=== PATIENT | male | born 1965 | race American Indian/Alaskan Native ===

== ENCOUNTER 2017-05-07 19:44 | Observation (INO) | payer BC ==
[2017-05-07 20:00] VITALS: BMI 33.2
[2017-05-07 20:20] LABS: ALB/GLOB RATIO 1.3 (1.1-1.8); ALBUMIN 4.3 g/dL (3.0-4.8); ALT/SGPT 22 U/L (7-56); AST/SGOT 21 U/L (15-59); BLOOD UREA NITROGEN 15 mg/dL (7-21); CALCIUM 9.5 mg/dL (8.4-10.5); GFR AFRICAN-AMERICAN > 60; GFR NON-AFRICAN AMERICAN > 60; HDL CHOLESTEROL 57 mg/dL (29-60)
[2017-05-07 20:31] LABS: LDL CHOLESTEROL 59 mg/dL (0-129); TROPONIN I < 0.01 ng/mL
--- NOTE | 2017-05-07 20:37 | ED PDOC ---
Arrival/HPI - General Chief Complaint: Weakness/Neurological Deficit Time Seen by Provider: 05/07/17 19:46 Historian: Patient, Family - History of Present Illness Narrative History of Present Illness (Text): 05/07/17 19:45 Lane Rivera is a 51 year old male who presents to the ED complaining of sudden onset of left sided weakness prior to arrival. Patient reports associated slurred speech. Patient denies any shortness of breath, chest pain, abdominal pain, nausea, vomiting, diarrhea, or any other complaints. Time/Duration: Prior to Arrival Symptom Onset: Gradual Symptom Course: Unchanged Activities at Onset: Rest, Light Context: Home Past Medical History - Provider Review Nursing Documentation Reviewed: Yes - Psychiatric Hx Substance Use: No - Anesthesia Hx Anesthesia: No Family/Social History - Physician Review Nursing Documentation Reviewed: Yes Family/Social History: Unknown Family HX Smoking Status: Never Smoked Hx Alcohol Use: No Hx Substance Use: No Allergies/Home Meds Allergies/Adverse Reactions: Allergies No Known Allergies Allergy (Verified 05/07/17 19:47) Home Medications: Home Meds Medication Instructions Recorded Confirmed No Known Home Med 05/07/17 05/07/17 Review of Systems - Physician Review All systems were reviewed & negative as marked: Yes - Review of Systems Constitutional: Normal Eyes: Normal ENT: Normal Respiratory: Normal. absent: SOB, Cough Cardiovascular: Normal. absent: Chest Pain Gastrointestinal: Normal. absent: Abdominal Pain, Diarrhea, Nausea, Vomiting Genitourinary Male: Normal Musculoskeletal: Normal Skin: Normal Neurological: Focal Weakness (+left-sided weakness), Speech Changes (+slurred speech) Endocrine: Normal Hemo/Lymphatic: Normal Psychiatric: Normal Physical Exam Vital Signs Reviewed: Yes Vital Signs Temp Pulse Resp BP Pulse Ox 05/07/17 22:28 98.3 F 78 17 132/61 05/07/17 21:19 78 17 132/61 97 05/07/17 21:03 79 18 137/82 99 05/07/17 20:55 72 17 144/60 99 05/07/17 20:09 98.3 F 83 18 132/64 99 05/07/17 20:07 86 19 132/64 98 Temperature: Afebrile Blood Pressure: Normal Pulse: Regular Respiratory Rate: Normal Appearance: Positive for: Well-Appearing, Non-Toxic, Comfortable Pain Distress: None Mental Status: Positive for: Alert and Oriented X 3 Finger Stick Blood Glucose: 103 - Systems Exam Head: Present: Atraumatic, Normocephalic Pupils: Present: PERRL Extroacular Muscles: Present: EOMI Conjunctiva: Present: Normal Mouth: Present: Moist Mucous Membranes Neck: Present: Normal Range of Motion Respiratory/Chest: Present: Clear to Auscultation, Good Air Exchange. No: Respiratory Distress, Accessory Muscle Use Cardiovascular: Present: Regular Rate and Rhythm, Normal S1, S2. No: Murmurs Abdomen: Present: Normal Bowel Sounds. No: Tenderness, Distention, Peritoneal Signs Back: Present: Normal Inspection Upper Extremity: Present: Normal Inspection. No: Cyanosis, Edema Lower Extremity: Present: Normal Inspection. No: Edema Neurological: Present: GCS=15, Memory Normal. No: Speech Normal (Slurred speech ), Motor Func Grossly Intact (Left-sided weakness) Skin: Present: Warm, Dry, Normal Color. No: Rashes Psychiatric: Present: Alert, Oriented x 3, Normal Insight, Normal Concentration Medical Decision Making ED Course and Treatment: 05/07/17 19:45 Impression: 51 year old male c/o left-sided weakness and slurred speech prior to arrival. Differential Diagnosis included but are not limited to: TIA vs. CVA Plan: -- CT Head w/o contrast -- EKG -- CXR -- Labs, troponin, lipid panel, blood type and screen -- Reassess and disposition Progress Notes: 05/07/17 19:46 Pt seen on arrival to ED. Code Stroke called. Pt taken CT scan. 05/07/17 19:[address] Roth, neurologist, who is aware and agrees with plan. Recommens tPA. 05/07/17 20:14 Reviewed EKG, NSR at [address] bpm[address] Non-specific ST/T wave changes. 05/07/17 20:19 Reviewed radiology, CT Head shows: Examination somewhat degraded by patient motion. There is no intracranial hemorrhage, extraaxial collection, or acute transcortical infarction. The ventricles are normal in size and contour without mass-effect or midline shift. Osseous structures are normal. The paranasal sinuses and mastoid air cells are clear. IMPRESSION: No acute intracranial abnormalities 05/07/17 20:[address] Roth regarding of CT scan finding, who is aware and agrees with plan. i disagree with resident stroke scale pt uncooperative with exam, pt refusing tpa the agrred with family urging however pt symptoms improved now refusing States due to resolution of symptoms, pt not a candidate for tPA. Aspirin ordered. Reviewed CXR, shows no acute processes. 05/07/17 21:[address] Corbin, who is aware and agrees with plan. Accepts pt in to her service. Pt will go to Telemetry observation for TIA. Requests Dr. Flores on consult. CTA Head ordered. Pt in no acute distress. Discussed results and hospital observation plan with pt , who is aware and verbalizes agreement. 05/08/17 06:44 - Critical Care Critical Care Minutes: 30 minutes Narrative Critical Care (Text): Management of TIA - Lab Interpretations Lab Results: 05/07/17 20:00 05/07/17 20:00 Lab Results 05/07/17 21:05: Blood Type Confirm O POSITIVE 05/07/17 20:00: Blood Type O POSITIVE, Antibody Screen Negative, BBK History Checked No verified bt 05/07/17 20:00: Sodium 143, Potassium 4.0, Chloride 105, Carbon Dioxide 26, Anion Gap 16, BUN 15, Creatinine 1.2, Est GFR ( Amer) > 60, Est GFR (Non- Af Amer) > 60, Random Glucose 102, Calcium 9.5, Total Bilirubin 0.6, AST 21, ALT 22, Alkaline Phosphatase 54, Troponin I < 0.01, Total Protein 7.7, Albumin 4.3, Globulin 3.4, Albumin/Globulin Ratio 1.3, Triglycerides 177 H, Cholesterol 144, LDL Cholesterol Direct 59, HDL Cholesterol 57 05/07/17 20:00: PT 10.8, INR 1.00, APTT 25.0 05/07/17 20:00: WBC 5.8, RBC 5.07, Hgb 14.8, Hct 44.7, MCV 88.2, MCH 29.2, MCHC 33.1, RDW 14.1, Plt Count 210, MPV 12.0 H, Gran % 40.1 L, Lymph % (Auto) 50.2 H , Lea % (Auto) 7.8 H, Eos % (Auto) 1.6, Baso % (Auto) 0.3, Gran # 2.32, Lymph # 2.9, Lea # 0.5, Eos # 0.1, Baso # 0.02 I have reviewed the lab results: Yes - RAD Interpretation Radiology Orders: 05/07/17 19:50 HEAD W/O (CODE STROKE) [CT] Stat CHEST ONE VIEW [RAD] Stat 05/07/17 21:14 ANGIOGRAPHY HEAD [CT] Stat Kitchen Stewardess: ED Physician, Radiologist - EKG Interpretation Interpreted by ED Physician: Yes Type: 12 lead EKG - Medication Orders Current Medication Orders: Acetaminophen (Tylenol 325mg Tab) 650 mg PO Q4H PRN PRN Reason: Pain, Mild (1-3) Sodium Chloride (Sodium Chloride 0.9%) 1,000 mls @ 100 mls/hr IV .Q10H STA Stop: 05/08/17 09:20 Last Admin: 05/08/17 00:05 Dose: 100 mls/hr Discontinued Medications Aspirin (Ecotrin) 325 mg PO STAT STA Stop: 05/07/17 20:59 Last Admin: 05/07/17 21:08 Dose: 325 mg Clopidogrel Bisulfate (Plavix) 300 mg PO STAT STA Stop: 05/07/17 21:00 Last Admin: 05/07/17 21:08 Dose: 300 mg Iohexol (Omnipaque 350 100 Ml) Confirm Administered Dose 350 mg .ROUTE .STK-MED ONE Stop: 05/07/17 21:37 Ondansetron HCl (Zofran Inj) 4 mg IVP STAT STA Stop: 05/07/17 21:17 Last Admin: 05/07/17 21:20 Dose: 4 mg Pneumococcal Polyvalent Vaccine (Pneumovax 23 Vaccine) 0.5 ml IM .ONCE ONE Stop: 05/07/17 22:43 Last Admin: 05/07/17 23:44 Dose: NIHSS Scale ([place]) - How Severe is the Stoke Baseline Level of Consciousness: 0=Alert LOC to Questions: 0=Both comments correct LOC to commands: 1=Obeys one correctly Best Gaze: 0=Normal Visual: 0=No visual loss Facial: 1=Minor asymmetry Motor Arm - Left: 1=Drift noted before 10 sec Motor Arm - Right: 0=No drift Motor Leg - Left: 0=No drift Motor Leg - Right: 0=No drift Limb Ataxia: 1=Present Upper or Lower Sensory: 0=Normal Best Language: 0=No aphasia Dysarthia: 1=Mild to moderate slurring Extinction & Inattention (Neglect): 1=Partial neglect (mild scott-attention) Score: 6 Risk Level: Mod Stroke Risk rTPA Inclusion/Exclusion - Refusal of Treatment Patient Refused Treatment: Yes - Scribe Statement The provider has reviewed the documentation as recorded by the Matthewibporfirio Kaufman Provider Attestation: All medical record entries made by the Matthewibe were at my direction and personally dictated by me. I have reviewed the chart and agree that the record accurately reflects my personal performance of the history, physical exam, medical decision making, and the department course for this patient. I have also personally directed, reviewed, and agree with the discharge instructions and disposition. Disposition/Present on Arrival - Present on Arrival Any Indicators Present on Arrival: No History of DVT/PE: No History of Uncontrolled Diabetes: No Urinary Catheter: No History of Decub. Ulcer: No History Surgical Site Infection Following: None - Disposition Have Diagnosis and Disposition been Completed?: Yes Diagnosis: Transient ischemic attack (TIA) Disposition: HOSPITALIZED Disposition Time: 22:00 Condition: FAIR
[2017-05-07 20:38] LABS: HEMOGLOBIN 14.8 gm/dL (14.0-18.0); RBC 5.07 10^6/uL (3.5-6.1); WHITE BLOOD COUNT 5.8 10^3/ul (4.5-11.0)
[2017-05-07 20:39] LABS: BASO # 0.02 K/mm3 (0.0-2.0); BASO % 0.3 % (0.0-3.0); EOS # 0.1 (0.0-0.7); EOS % 1.6 % (1.5-5.0); GRAN # 2.32 (1.4-6.5); GRAN % 40.1 % (50.0-68.0); LYMPH # 2.9 (1.2-3.4); LYMPH % 50.2 % (22.0-35.0); MEAN CELL VOLUME 88.2 fL (80.0-105.0); MEAN CORPUSCULAR HEMOGLOBIN 29.2 pg (25.0-35.0); MEAN CORPUSCULAR HGB CONC 33.1 g/dl (31.0-37.0); MONO # 0.5 (0.1-0.6); MONO % 7.8 % (1.0-6.0); PLATELET COUNT 210 10^3/uL (120.0-450.0); RED CELL DISTRIBUTION WIDTH 14.1 % (11.5-14.5)
[2017-05-07 20:45] LABS: PROTHROMBIN TIME 10.8 Seconds (9.9-11.8)
--- NOTE | 2017-05-07 20:46 | CP.PCM.PCO ---
<Tyler France - Last Filed: 05/07/17 20:43> Physician Communication Note - Physician Communication Note Physician Communication Note: Please see attached section for CODE Stroke NIHSS score NIHSS Stroke Scale - Date/Time Evaluation Performed Date Performed: 05/07/17 Time Performed: 20:05 When Was NIHSS Performed: Baseline - How Severe is the Stroke Level of Consciousness: 0=Alert LOC to Questions: 1=One correct LOC to commands: 1=Obeys one correctly Best Gaze: 1=Partial gaze palsy Visual: 0=No visual loss Facial: 1=Minor asymmetry Motor Arm - Left: 2=Falls before 10 sec Motor Arm - Right: 2=Falls before 10 sec Motor Leg - Left: 2=Falls before 5 sec Motor Leg - Right: 2=Falls before 5 sec Limb Ataxia: 1=Present Upper or Lower Sensory: 1=Mild to moderate loss Best Language: 0=No aphasia Dysarthia: 0=Normal articulation Extinction & Inattention (Neglect): 1=Partial neglect (mild scott-attention) Score: 15 Severity Of Stroke: 5-15 = Moderate Stroke <Jadiel Jiang - Last Filed: 05/08/17 07:02> Attending/Attestation - Attestation I have personally seen and examined this patient.: No I have fully participated in the care of the patient.: No I have reviewed all pertinent clinical information: No Notes (Text): Patient was code stroke in ER hence not seen by me, pt was seen by resident with the ER physician who was the incharge of the patient at the time of code stroke called.
[2017-05-07] MEDS ORDERED: Aspirin 325 mg EC Tablets PO STA (20:58)
--- NOTE | 2017-05-07 21:17 | CP.PCM.PCO ---
Physician Communication Note - Physician Communication Note Physician Communication Note: Please see attached section for Code Stroke repeat NIHSS score NIHSS Stroke Scale - Date/Time Evaluation Performed Date Performed: 05/07/17 Time Performed: 20:50 When Was NIHSS Performed: Re-evaluation - How Severe is the Stroke Level of Consciousness: 0=Alert LOC to Questions: 1=One correct LOC to commands: 0=Obeys both correctly Best Gaze: 1=Partial gaze palsy Visual: 0=No visual loss Facial: 1=Minor asymmetry Motor Arm - Left: 0=No drift Motor Arm - Right: 0=No drift Motor Leg - Left: 0=No drift Motor Leg - Right: 1=Drift before 5 sec Limb Ataxia: 0=Absent Sensory: 1=Mild to moderate loss Best Language: 0=No aphasia Dysarthia: 1=Mild to moderate slurring Extinction & Inattention (Neglect): 1=Partial neglect (mild scott-attention) Score: 7 Severity Of Stroke: 5-15 = Moderate Stroke
[2017-05-07] MEDS ORDERED: Iohexol 350 MG/100 ML VIAL ONE (21:36)
[2017-05-07] MEDS ORDERED: Pneumococcal 23-Valent Vaccine IM ONE (22:42)
[2017-05-07] MEDS ORDERED: Sodium Chloride 0.9% 1,000 ML IV STA (23:21)
[2017-05-08 05:42] VITALS: O2SAT 98
--- NOTE | 2017-05-08 07:32 | CT ---
PROCEDURE: CT HEAD WITHOUT CONTRAST. HISTORY: Code Stroke COMPARISON: None available. TECHNIQUE: Axial computed tomography images were obtained through the head/brain without intravenous contrast. Radiation dose: Total exam DLP = 1671 mGy-cm. This CT exam was performed using one or more of the following dose reduction techniques: Automated exposure control, adjustment of the mA and/or kV according to patient size, and/or use of iterative reconstruction technique. FINDINGS: HEMORRHAGE: No intracranial hemorrhage. BRAIN: No mass effect or edema. No atrophy or chronic microvascular ischemic changes. VENTRICLES: Unremarkable. No hydrocephalus. CALVARIUM: Unremarkable. PARANASAL SINUSES: Unremarkable as visualized. No significant inflammatory changes. MASTOID AIR CELLS: Unremarkable as visualized. No inflammatory changes. OTHER FINDINGS: None. IMPRESSION: Normal CT of the Head.
--- NOTE | 2017-05-08 08:51 | CT ---
PROCEDURE: CT Angiography of the Brain. HISTORY: TIA COMPARISON: None available. TECHNIQUE: CT angiography of the intracranial arteries was performed. Coronal and sagittal maximum intensity projection reformated images were generated. This CT exam was performed using one or more of the following dose reduction techniques: Automated exposure control, adjustment of the mA and/or kV according to patient size, and/or use of iterative reconstruction technique. FINDINGS: INTERNAL CEREBRAL ARTERIES: Normal in caliber. The skull base, petrous, cavernous and supraclinoid segments are bilaterally widely patient. ANTERIOR CEREBRAL ARTERIES: Normal in caliber. A1 and A2 segments are widely patent. Smaller distal branches unremarkable, as visualized. MIDDLE CEREBRAL ARTERIES: Normal in caliber. M1 and M2 segments are widely patent. Perisylvian branches grossly symmetric. POSTERIOR CIRCULATION: Basilar Artery: Normal in caliber. Distal Vertebral Arteries: Normal in caliber. Posterior Cerebral Arteries: Normal in caliber. Posterior Inferior Cerebellar Arteries: Normal in caliber. ANEURYSM/ VASCULAR MALFORMATIONS: None. OTHER FINDINGS: None. IMPRESSION: Normal CT angiogram of the brain. A preliminary report was provided by [employer].
--- NOTE | 2017-05-08 08:53 | RAD ---
PROCEDURE: CHEST RADIOGRAPH, 1 VIEW HISTORY: cva COMPARISON: None available. FINDINGS: LUNGS: Clear. PLEURA: No pneumothorax or pleural fluid seen. CARDIOVASCULAR: Normal. OSSEOUS STRUCTURES: No significant abnormalities. VISUALIZED UPPER ABDOMEN: Normal. OTHER FINDINGS: None. IMPRESSION: No active disease.
--- NOTE | 2017-05-08 09:35 | CP.PCM.CON ---
<David Barger - Last Filed: 05/08/17 12:09> History of Present Illness - History of Present Illness History of Present Illness: PGY-[address] Flores's Neurology Service: Reason for consultation: TIA This is a 51 year old male with no significant PMHx who presented with left sided weakness and slurred speech. Patient was speaking with his friend when he noticed a sudden onset of left arm numbness and weakness. Patient does not recall LOC but states that his friend told him that he had passed out. Patient states that his symptoms at the time included CP, SOB, lightheadedness, left arm numbness/weakness. In the ED, patient was offered tPA but he refused due to improving symptoms. Patient reports chronic sleep deprivation that has been particularly pronounced this past week. Patient is able to fall asleep but is unable to stay asleep. PMHx: Denies PSHx: Meniscus surgery left knee Allergies: NKDA Social: Denies tobacco, alcohol, drugs. Family Hx: Mother with CVA Review of Systems - Constitutional Constitutional: Weakness (improving left sided). absent: Headache - EENT Eyes: absent: Change in Vision Ears: absent: Decreased Hearing - Cardiovascular Cardiovascular: absent: Chest Pain - Respiratory Respiratory: absent: Dyspnea - Gastrointestinal Gastrointestinal: absent: Abdominal Pain, Nausea, Vomiting - Genitourinary Genitourinary: absent: Dysuria - Neurological Neurological: Weakness. absent: Dizziness, Numbness, Headaches, Tingling - Endocrine Endocrine: absent: Palpitations Past Patient History - Past Social History Smoking Status: Never Smoked - CARDIAC Hx Cardiac Disorders: No - PULMONARY Hx Respiratory Disorders: No - NEUROLOGICAL Hx Neurological Disorder: No - HEENT Hx HEENT Problems: No - RENAL Hx Chronic Kidney Disease: No - ENDOCRINE/METABOLIC Hx Endocrine Disorders: No - HEMATOLOGICAL/ONCOLOGICAL Hx Blood Disorders: No - INTEGUMENTARY Hx Dermatological Problems: No - MUSCULOSKELETAL/RHEUMATOLOGICAL Hx Musculoskeletal Disorders: Yes Hx Arthritis: Yes - GASTROINTESTINAL Hx Gastrointestinal Disorders: No - GENITOURINARY/GYNECOLOGICAL Hx Genitourinary Disorders: No - PSYCHIATRIC Hx Substance Use: No - SURGICAL HISTORY Hx Appendectomy: Yes - ANESTHESIA Hx Anesthesia: No Meds Allergies/Adverse Reactions: Allergies Allergy/AdvReac Type Severity Reaction Status Date / Time No Known Allergies Allergy Verified 05/07/17 19:47 - Medications Medications: Current Medications Acetaminophen (Tylenol 325mg Tab) 650 mg PO Q4H PRN PRN Reason: Pain, Mild (1-3) Aspirin (Ecotrin) 81 mg PO DAILY VIKKI Clopidogrel Bisulfate (Plavix) 75 mg PO DAILY VIKKI Physical Exam - Constitutional Appears: Non-toxic, No Acute Distress - Head Exam Head Exam: ATRAUMATIC, NORMAL INSPECTION, NORMOCEPHALIC - Eye Exam Eye Exam: EOMI, PERRL - ENT Exam ENT Exam: Mucous Membranes Moist - Respiratory Exam Respiratory Exam: Clear to Auscultation Bilateral - Cardiovascular Exam Cardiovascular Exam: REGULAR RHYTHM - GI/Abdominal Exam GI & Abdominal Exam: Normal Bowel Sounds - Neurological Exam Neurological exam: Alert, CN II-XII Intact, Oriented x3 Additional comments: Manual muscle testing revealed 4+/5 Left Upper Extremity compared to 5/5 right upper extremity. Lower extremity 5/5 bilaterally. Sensations to light touch intact bilaterally. Reflexes 1/4 upper and lower extremities bilaterally. No pronator drift. Normal finger to nose. Down-going plantar responses. Results - Vital Signs Recent Vital Signs: Last Vital Signs Temp 97.7 F 05/08/17 04:00 Pulse 66 05/08/17 05:41 Resp 20 05/08/17 04:00 BP 116/77 05/08/17 04:00 Pulse Ox 98 05/08/17 04:00 - Labs Result Diagrams: 05/07/17 20:00 05/07/17 20:00 Labs: Laboratory Results - last 24 hr 05/08/17 07:35 POC Glucose (mg/dL) 82 Assessment & Plan - Assessment and Plan (Free Text) Assessment: his is a 51 year old male with no significant PMHx who presented with left sided weakness and slurred speech. CT head negative for acute ischemic or hemorrhagic pathology. Patient's improved slurred speech, left arm numbness/ weakness indicate that this may be a TIA vs questionable seizure activity in the brain likely precipitated by chronic sleep deprivation. Plan: 1) Avoid hypotensive episodes. 2) Maintain SBP between 120-130 mmHg. 3) Maintain adequate hydration. 4) Follow up MRI brain. 5) Follow up MRA head and neck. 6) Follow up EEG. Case discussed with Dr. Sandra Barger, PGY-1 - Date & Time Date: 05/08/17 Time: 09:15 <Mario Flores - Last Filed: 05/08/17 14:26> Meds - Medications Medications: Current Medications Acetaminophen (Tylenol 325mg Tab) 650 mg PO Q4H PRN PRN Reason: Pain, Mild (1-3) Aspirin (Ecotrin) 81 mg PO DAILY [facility] Last Admin: 05/08/17 10:28 Dose: 81 mg Clopidogrel Bisulfate (Plavix) 75 mg PO DAILY [facility] Last Admin: 05/08/17 10:28 Dose: 75 mg Results - Vital Signs Recent Vital Signs: Last Vital Signs Temp 97.7 F 05/08/17 04:00 Pulse 66 05/08/17 10:00 Resp 20 05/08/17 04:00 BP 116/77 05/08/17 04:00 Pulse Ox 98 05/08/17 04:00 - Labs Result Diagrams: 05/07/17 20:00 05/07/17 20:00 Labs: Laboratory Results - last 24 hr 05/08/17 07:35 POC Glucose (mg/dL) 82 Attending/Attestation - Attestation I have personally seen and examined this patient.: Yes I have fully participated in the care of the patient.: Yes I have reviewed all pertinent clinical information: Yes Notes (Text): 05/08/17 14:25 IMPRESSION: TIA C/W HYPERCOAGUABLE WORKUP. DR MUÑOZ WILL FOLLOWING. CHERELLE FLORES MD.
[2017-05-08] MEDS ORDERED: Gadodiamide 287 MG/ML VIAL (20ML) IV ONE (11:09)
--- NOTE | 2017-05-08 12:49 | MRI ---
PROCEDURE: Magnetic Resonance Angiography Brain HISTORY: stroke COMPARISON: None available. TECHNIQUE: 3D time of flight MR angiography of the intracranial arteries was performed. Rotating maximum intensity projection images were generated. FINDINGS: INTERNAL CEREBRAL ARTERIES: Unremarkable. The skull base, petrous, cavernous and supraclinoid segments are bilaterally widely patient. ANTERIOR CEREBRAL ARTERIES: Unremarkable. A1 and A2 segments are widely patent. Smaller distal branches unremarkable, as visualized. MIDDLE CEREBRAL ARTERIES: Unremarkable. M1 and M2 segments are widely patent. Perisylvian branches grossly symmetric. POSTERIOR CIRCULATION: Basilar Artery: Unremarkable. Distal Vertebral Arteries: Unremarkable. Posterior Cerebral Arteries: Unremarkable. Posterior Inferior Cerebellar Arteries: Unremarkable. ANEURYSM/ VASCULAR MALFORMATIONS: None. OTHER FINDINGS: The anterior and bilateral posterior communicating arteries appear widely patent. . IMPRESSION: Unremarkable MR angiography of the brain.
--- NOTE | 2017-05-08 12:53 | MRI ---
PROCEDURE: MR Angiography of the neck with and without contrast HISTORY: tia COMPARISON: None available. TECHNIQUE: Contrast enhanced and [id number] angiography of the neck was performed. Rotating 3D maximum intensity projection of the cervical carotid and vertebral arteries were generated. FINDINGS: RIGHT CAROTID ARTERIES: Common Carotid Artery: Normal. Carotid Bifurcation: Normal. Internal Carotid Artery:Normal. External Carotid Artery (proximal branches): Normal. LEFT CAROTID ARTERIES: Common Carotid Artery: Normal. Carotid Bifurcation: Normal. Internal Carotid Artery:Normal. External Carotid Artery (proximal branches): Normal. VERTEBRAL ARTERIES: Right Vertebral Artery: Normal. Left Vertebral Artery: Normal. OTHER FINDINGS: Reformatted datasets are some obscured by artifact however source images reveal widespread patency of the carotid and vertebral arterial systems within the neck as discussed above. IMPRESSION: Normal MR Angiography of the neck.
--- NOTE | 2017-05-08 12:56 | CARD ---
APPROVED REPORT EKG Measurement Heart [id number] <Conclusion> Normal sinus rhythm Inferior infarct, age undetermined Abnormal ECG
--- NOTE | 2017-05-08 12:57 | MRI ---
PROCEDURE: MRI BRAIN WITH AND WITHOUT CONTRAST HISTORY: tia COMPARISON: None. TECHNIQUE: Multiplanar, multisequence MR images of the brain were obtained with and without intravenous contrast enhancement. FINDINGS: HEMORRHAGE: None DWI: No evidence of an acute or early subacute infarction. BRAIN PARENCHYMA: No mass,mass effect or cortical edema. Intrinsic signal throughout the sandovla and white matter structures above or below the tentorium is unremarkable although somewhat artifact by limited on a motion artifact throughout this examination particularly apparent in long TR sequences. ENHANCEMENT: No abnormal intracranial enhancement. VENTRICLES: Small right choroid plexus cyst is identified at the atrium of the right lateral ventricle. No hydrocephalus. CRANIUM: Unremarkable. ORBITS: Grossly unremarkable. PARANASAL SINUSES/MASTOIDS: Clear VASCULAR SYSTEM: Skull base flow voids intact. OTHER FINDINGS: None . IMPRESSION: No significant parenchymal abnormality identified above and below the tentorium including post gadolinium enhanced imaging. Note is made of a small right sided choroid plexus cyst.
--- NOTE | 2017-05-08 13:39 | CP.PCM.CON ---
History of Present Illness - History of Present Illness History of Present Illness: Mr. Rivera is a 51-year-old man with no significant past medical history, who presented after an episode of dysarthria, left facial droop and left arm weakness. These symptoms subsided after about two hours. He describes the episode as chest discomfort, left sided weakness and he stood up and fell. He felt nervous and jittery. In the ED, he had an initial NIHSS of 4. He was within the 3 hour time window of IV tPA, he refused tPA due to concern of bleed. He received aspirin 81 mg and Plavix 300 mg PO once and was started on fluids. His NIHSS went down to 1 for some mild dysarthria. Today, his NIHSS is 0. CT scan of the head was normal. CTA of the head/neck was normal. MRI showed DWI hyperintensity near the right lateral ventricle. 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 Review of Systems - Review of Systems All systems: reviewed and no additional remarkable complaints except Past Patient History - Past Social History Smoking Status: Never Smoked - CARDIAC Hx Cardiac Disorders: No - PULMONARY Hx Respiratory Disorders: No - NEUROLOGICAL Hx Neurological Disorder: No - HEENT Hx HEENT Problems: No - RENAL Hx Chronic Kidney Disease: No - ENDOCRINE/METABOLIC Hx Endocrine Disorders: No - HEMATOLOGICAL/ONCOLOGICAL Hx Blood Disorders: No - INTEGUMENTARY Hx Dermatological Problems: No - MUSCULOSKELETAL/RHEUMATOLOGICAL Hx Musculoskeletal Disorders: Yes Hx Arthritis: Yes - GASTROINTESTINAL Hx Gastrointestinal Disorders: No - GENITOURINARY/GYNECOLOGICAL Hx Genitourinary Disorders: No - PSYCHIATRIC Hx Substance Use: No - SURGICAL HISTORY Hx Appendectomy: Yes - ANESTHESIA Hx Anesthesia: No Meds Allergies/Adverse Reactions: Allergies Allergy/AdvReac Type Severity Reaction Status Date / Time No Known Allergies Allergy Verified 05/07/17 19:47 - Medications Medications: Current Medications Acetaminophen (Tylenol 325mg Tab) 650 mg PO Q4H PRN PRN Reason: Pain, Mild (1-3) Aspirin (Ecotrin) 81 mg PO DAILY [facility] Last Admin: 05/08/17 10:28 Dose: 81 mg Clopidogrel Bisulfate (Plavix) 75 mg PO DAILY [facility] Last Admin: 05/08/17 10:28 Dose: 75 mg Physical Exam - Constitutional Appears: Well - Head Exam Head Exam: ATRAUMATIC, NORMAL INSPECTION, NORMOCEPHALIC - Eye Exam Eye Exam: EOMI, Normal appearance, PERRL - ENT Exam ENT Exam: Mucous Membranes Moist, Normal Exam - Neck Exam Neck exam: Positive for: Normal Inspection - Respiratory Exam Respiratory Exam: Clear to Auscultation Bilateral, NORMAL BREATHING PATTERN - Cardiovascular Exam Cardiovascular Exam: REGULAR RHYTHM, +S1, +S2 - GI/Abdominal Exam GI & Abdominal Exam: Normal Bowel Sounds, Soft. absent: Tenderness - Rectal Exam Rectal Exam: Deferred - Extremities Exam Extremities exam: Positive for: normal inspection - Back Exam Back exam: NORMAL INSPECTION - Neurological Exam Neurological exam: Alert, CN II-XII Intact, Normal Gait, Oriented x3, Reflexes Normal - Expanded Neurological Exam Expanded Patient oriented to: person, place, time Cranial nerves: EOM's Intact: Normal, Facial Sensation: Normal Ataxia: No Cerebellar Function: Finger to Nose: Normal, Heel to [place]: Normal Upper motor neuron: Babinski Sign: Normal Sensory exam: Lower Extremity Light Touch: Normal, Lower Extremity Pin Prick: Normal, Upper Extremity Light Touch: Normal, Upper Extremity Pin Prick: Normal Neuro motor strength exam: Left Upper Extremity: 5, Right Upper Extremity: 5, Left Lower Extremity: 5, Right Lower Extremity: 5 DTR: Achilles Tendon Left: 2+, Achilles Tendon Right: 2+, Bicep Left: 2+, Bicep Right: 2+, Brachioradialis Left: 2+, Brachioradialis Right: 2+, Patellar Left: 2 +, Patellar Right: 2+, Tricep Left: 2+, Tricep Right: 2+ - Psychiatric Exam Psychiatric exam: Normal Affect, Normal Mood - Skin Skin Exam: Dry, Intact, Normal Color, Warm Results - Vital Signs Recent Vital Signs: Last Vital Signs Temp 97.7 F 05/08/17 04:00 Pulse 66 05/08/17 10:00 Resp 20 05/08/17 04:00 BP 116/77 05/08/17 04:00 Pulse Ox 98 05/08/17 04:00 - Labs Result Diagrams: 05/07/17 20:00 05/07/17 20:00 Labs: Laboratory Results - last 24 hr 05/08/17 07:35 POC Glucose (mg/dL) 82 Assessment & Plan (1) Transient ischemic attack (TIA) Assessment and Plan: Although the patient has no real risk factors for stroke, the length of time of the symptoms is concerning, therefor I do recommend a full TIA/stroke work-up. I recommend the followin. Telemetry 2. Echocardiogram with bubble study 3. Continue aspirin 81 mg daily and may D/C Plavix 4. Fluid with NS at 100 mL/hr 5. Will order hypercoagulable work-up as well as B12, B1, homocysteine, HbA1c, and lipid panel 6. PT/OT eval and treat if needed 7. DVT Px Thank you for this consultation. Status: Acute Priority: High
[2017-05-08 20:24] LABS: BARBITURATES, UR NEGATIVE (NEGATIVE); BENZODIAZEPINES, UR NEGATIVE (NEGATIVE); OPIATES, UR NEGATIVE (NEGATIVE); PHENCYCLIDINE, UR NEGATIVE (NEGATIVE)
--- NOTE | 2017-05-08 23:41 | CON ---
DATE: 05/08/2017 CONSULT SERVICE: Cardiology. REASON FOR CONSULTATION: Evaluation, admitted with possible TIA/CVA. 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 The patient felt some chest pain, dizzy, tried to stand up, and he passed out. The people were looking at his face on FaceTime that he was blinking. When the patient woke up, he was already in a stretcher on the way to [facility]. He denies any chest pain, denies shortness of breath, denies any palpitations. The patient walks 3 miles and goes 5 flights of stairs without any chest pain or shortness of breath or any palpitations. PAST MEDICAL HISTORY: Nothing significant. CURRENT MEDICATIONS: None. SOCIAL HISTORY: Denies any history of alcohol abuse, denies any history substance abuse. FAMILY HISTORY: Nothing significant. SURGICAL HISTORY: Nothing significant. REVIEW OF SYSTEMS: As per HPI. PHYSICAL EXAMINATION: VITAL SIGNS: Temperature afebrile, heart rate 66, blood pressure 106/77. HEENT: PERRLA. Extraocular muscles intact. NECK: Supple. No carotid bruit. No thyromegaly. CHEST: Clear to auscultation. HEART: S1 and S2, regular. ABDOMEN: Soft. EXTREMITIES: Clubbing and cyanosis negative. LABORATORY DATA: Blood workup as follows: WBC 5.8, hemoglobin 14.8, hematocrit 44.7, and platelet count is 210. Chemistry shows sodium 140, potassium 4, chloride 105, carbon dioxide 26, anion gap of 15, BUN 1.2, creatinine of 1.2. IMPRESSION: 1. Syncope. 2. Chest pain. So far, no evidence of myocardial infarction. EKG shows normal sinus, Q-wave in II, III, and aVF. 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 RECOMMENDATION: Echo to rule out any PFO. We will do the bubble study to rule out any PFO. Monitor on telemetry for arrhythmia. For risk stratification, also suggest a stress test as an outpatient in 2-[address] Corbin for the opportunity of taking care of the patient, Lane Rivera. *------* TSH, lipid profile, fasting, and hemoglobin A1c. We will follow with you. Serge Lindquist MD
--- NOTE | 2017-05-09 11:08 | CON ---
PULMONARY/SLEEP DISORDER CONSULT DATE: 05/08/2017 REFERRING PHYSICIAN: Dr. Corbin. REASON FOR CONSULT: Status post syncopal type episode, loud snoring, daytime sleepy, rule out sleep apnea syndrome. HISTORY OF PRESENT ILLNESS: This is a 51-year-old gentleman without any significant past medical history, has a chronic insomnia, known snoring, daytime sleepy and tired. Today, he had an episode of dysarthria with facial droop and left arm weakness, he was rushed to [facility]. Code stroke was called, but the patient recovered fully within 2 hours of incident. He received aspirin and Plavix. Presently, sitting at the side of the bed. No headache. No rhinitis. No nausea, no vomiting or diarrhea, leg pain or leg swelling. PAST MEDICAL HISTORY: There is no history of cardiopulmonary disease. ALLERGIES: NONE KNOWN. SOCIAL HISTORY: No smoker. No drinker. FAMILY HISTORY: No significant cardiopulmonary disease reported. MEDICATIONS: He is on aspirin 81 mg daily, Plavix 75 mg daily and Tylenol p.r.n. basis. REVIEW OF SYSTEMS: Presently, there is no headache, no rhinitis, no nausea, no vomiting, no diarrhea, no leg pain, no leg swelling. History of snoring, daytime sleepy and multiple night awakenings. PHYSICAL EXAMINATION: VITAL SIGNS: Temperature is 98, heart rate is 94, respiratory rate is 20, blood pressure 130/80, pulse ox 98% on room air. HEENT: Moist mucous membranes. Crowded airway. Mallampati score is IV. NECK: Supple. No JVD. LUNGS: Fair airflow with rhonchi. HEART: S1 and S2. ABDOMEN: Soft and nontender. No organomegaly. EXTREMITIES: There is no edema. NEUROLOGIC: Awake, alert, follows simple commands. LABORATORY DATA: Shows hemoglobin 14.8, hematocrit 44.7, WBC 5.8 and platelet is 210. INR 1.0 and PTT is 25. Sodium 143, potassium 4.0, chloride 105, bicarbonate 26, BUN 15, creatinine 1.6, glucose 82, hemoglobin A1c 5.8, AST 21, ALT 22, alkaline phosphatase is 54, albumin 4.3 and triglycerides 177. Vitamin D is 27. TSH is 2.03. Tox screen has been negative. An MRA of the head done today, which shows unremarkable MRA angiography of the brain; also had MRA of the neck done, which shows normal MRA angiography of the neck and MRI shows no significant parenchymal abnormality identifiable. 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 IMPRESSION AND PLAN: Syncopal episode/transient ischemic attack, may have a sleep apnea syndrome and insomnia. The patient was seen by Dr. Scar Roth. Apparently on admission, the patient was offered tPA, which he refused, and within 2 hours, he recovered to the normal status. Cardiopulmonary workup is in progress. Case discussed with Dr. Corbin. Agree with present treatment. We will do sleep study as an outpatient, also noticed cardiac workup has been done. We will add vitamin D. Thank you and we will follow with you. Serge Treviño MD
--- NOTE | 2017-05-09 13:11 | CP.PCM.PN ---
Subjective - Date & Time of Evaluation Date of Evaluation: 05/09/17 Time of Evaluation: 13:07 - Subjective Subjective: Mr. Rivera was seen and examined today at bedside. He denied any complaints. There were no acute events overnight. He was seen by pulmonary and continues to have the cardiopulmonary work-up for his episode of left side weakness and near-syncope. I discussed the results of some of his tests with him. He had no questions. Objective - Vital Signs/Intake and Output Vital Signs (last 24 hours): Temp Pulse Resp BP Pulse Ox 97.7 F 52 L 20 132/86 98 05/09/17 12:00 05/09/17 12:00 05/09/17 12:00 05/09/17 12:00 05/09/17 06:00 Intake and Output: 05/09/17 05/09/17 06:59 18:59 Intake Total 240 Output Total 0 Balance 240 - Medications Medications: Current Medications Acetaminophen (Tylenol 325mg Tab) 650 mg PO Q4H PRN PRN Reason: Pain, Mild (1-3) Aspirin (Ecotrin) 81 mg PO DAILY [facility] Last Admin: 05/09/17 11:34 Dose: 81 mg Cholecalciferol (Vitamin D) 2,000 iu PO DAILY [facility] Last Admin: 05/09/17 11:34 Dose: 2,000 iu Clopidogrel Bisulfate (Plavix) 75 mg PO DAILY [facility] Last Admin: 05/09/17 11:34 Dose: 75 mg Famotidine (Pepcid) 40 mg PO [facility] Fenofibrate (Tricor) 145 mg PO DAILY [facility] Last Admin: 05/09/17 11:34 Dose: 145 mg - Labs Labs: PT 10.8 Seconds (9.9-11.8) 05/07/17 20:00 INR 1.00 (0.93-1.08) 05/07/17 20:00 APTT 25.0 Seconds (23.7-30.8) 05/07/17 20:00 - Neurological Exam Neurological Exam: Awake, CN II-XII Intact, Normal Gait, Oriented x3, Reflexes Normal Neuro motor strength exam: Left Upper Extremity: 5, Right Upper Extremity: 5, Left Lower Extremity: 5, Right Lower Extremity: 5 - Psychiatric Exam Psychiatric exam: Normal Affect, Normal Mood Assessment and Plan (1) Transient ischemic attack (TIA) Assessment & Plan: Follow up on echocardiogram results and follow up with outpatient neurology ( Dr. Mario Flores) for EEG results. I also recommend monitoring the lateral ventricle cyst with a follow up MRI in 6-12 months. Continue aspirin 81 mg daily. Homocysteine was elevated, B12 and folate supplementation may help. Vitamin D was low, he was advised to supplement. Continue telemetery. If the patient's echocardiogram is normal, he is cleared for discharge and outpatient follow up from a neurological perspective. Status: Acute
--- NOTE | 2017-05-09 14:04 | PN ---
DATE: 05/09/2017 REASON FOR CONSULTATION: Followup, admitted with possible TIA, cerebrovascular accident. SUBJECTIVE: Denies any chest pain, shortness of breath, or any palpitation. PHYSICAL EXAMINATION: As follows: VITAL SIGNS: Temperature afebrile, heart rate 65, blood pressure 115/85. HEENT: PERRLA, intact. NECK: Supple. No carotid bruits or thyromegaly. CHEST: Clear to auscultation. HEART: S1 and S2, regular. ABDOMEN: Soft. EXTREMITIES: Clubbing and cyanosis, negative. LABORATORY DATA: Blood workup as follows: WBC 5.8, hemoglobin 14.8, hematocrit 44.4, platelet count 210. Chemistry shows sodium as of 05/07/2017 142, potassium 4.8, chloride 105, carbon dioxide 26, anion gap of 16, BUN 15, creatinine 1.2. TSH 2.03. 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 The patient has very active lifestyle, walks three miles, no complaints of chest pain. So far, troponin is negative and no evidence of any ischemia. No evidence of arrhythmia noted. Neuro workup is in progress. RECOMMENDATION: We will get echo to rule out any structural heart disease. We will schedule a stress test as outpatient. So far no evidence of arrhythmia. We will get echo to rule out any PFO with a bubble study, mentioned to technical analyst to get an echo with a bubble study to rule out any PFO. Further recommendation after workup. We will follow with you. Thank you, *------* for the opportunity of taking care of Lane Rivera. We will schedule a stress test in 2 weeks as outpatient. Serge Lindquist MD
--- NOTE | 2017-05-09 16:42 | CARD ---
APPROVED REPORT EXAM: Two-dimensional and M-mode echocardiogram with Doppler, color Doppler with contrast. INDICATION Syncope R/O THROMBUS/BUBBLE STUDY..TO R/O PFO 2D DIMENSIONS Left Atrium (2D)4.2 (1.6-4.0cm)IVSd1.0 (0.7-1.1cm) LVDd4.7 (3.9-5.9cm)PWd1.1 (0.7-1.1cm) LVDs3.2 (2.5-4.0cm)FS (%) 33.1 % LVEF (%)61.5 (>50%) M-Mode DIMENSIONS Aortic Root3.50 (2.2-3.7cm)Aortic Cusp Exc.2.30 (1.5-2.0cm) Aortic Valve AoV Peak Exbsznna248.0cm/Asif Peak GR.10mmHg Mitral Valve MV E Mhiesrqp94.4cm/sMV A Egdtouti81.5cm/sE/A ratio1.1 TDI Lateral E' Peak V13.20cm/sMedial E' Peak V7.90cm/sE/Lateral E'6.7 E/Medial E'11.2 Pulmonary Valve PV Peak Smreqvay53.9cm/sPV Peak Grad.3mmHg Tricuspid Valve TR Peak Lojmbmvh472ck/sRAP [id number] Peak Gr.14mmHg [id number] LEFT VENTRICLE The left ventricle is normal size. There is normal left ventricular wall thickness. The left ventricular function is normal. There is normal LV segmental wall motion. The left ventricular diastolic function is normal. No left ventricle thrombus noted on this study. There is no ventricular septal defect visualized. There is no left ventricular aneurysm. There is no mass noted in the left ventricle. RIGHT VENTRICLE The right ventricle is normal size. There is normal right ventricular wall thickness. The right ventricular systolic function is normal. ATRIA The left atrium is mildly dilated. The right atrium size is normal. The interatrial septum is intact with no evidence for an atrial septal defect.( BY Color Flow or Bubble Study). AORTIC VALVE The aortic valve is thickened but opens well. No aortic regurgitation is present. There is no aortic valvular stenosis. There is no aortic valvular vegetation. MITRAL VALVE The mitral valve is thickened but opens well. Mitral regurgitation is trace. There is no mitral valve stenosis. There is no evidence of mitral valve prolapse. TRICUSPID VALVE The tricuspid valve leaflets are thickened , but open well. There is trace to mild tricuspid regurgitation.RVSP-24 mmof HG. There is no tricuspid valve stenosis. There is no tricuspid valve prolapse or vegetation. PULMONIC VALVE The pulmonary valve is normal in structure. There is trace pulmonic valvular regurgitation. There is no pulmonic valvular stenosis. GREAT VESSELS The aortic root is normal in size. The ascending aorta is normal in size. The pulmonary artery is normal. The IVC is normal in size and collapses >50% with inspiration. PERICARDIAL EFFUSION There is no pleural effusion. There is no pericardial effusion. <Conclusion> The left ventricle is normal size. There is normal left ventricular wall thickness. The left ventricular function is normal. Mitral regurgitation is trace. There is trace to mild tricuspid regurgitation.RVSP-24 mmof HG. The IVC is normal in size and collapses >50% with inspiration. There is no pericardial effusion. The interatrial septum is intact with no evidence for an atrial septal defect.( BY Color Flow or Bubble Study).
[2017-05-09 17:07] VITALS: BP 114/79; PULSE 61; RESP 18; TEMP 97.6
--- NOTE | 2017-05-10 09:12 | CP.PCM.HP ---
History of Present Illness - History of Present Illness History of Present Illness: History of Present Illness: Mr. Rivera is a 51-year-old man with no significant past medical history, who presented after an episode of dysarthria, left facial droop and left arm weakness. These symptoms subsided after about two hours. He describes the episode as chest discomfort, left sided weakness and he stood up and fell. He felt nervous and jittery. In the ED, he had an initial NIHSS of 4. He was within the 3 hour time window of IV tPA, he refused tPA due to concern of bleed. He received aspirin 81 mg and Plavix 300 mg PO once and was started on fluids. His NIHSS went down to 1 for some mild dysarthria. Today, his NIHSS is 0. CT scan of the head was normal. CTA of the head/neck was normal. MRI showed DWI hyperintensity near the right lateral ventricle. 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 Present on Admission - Present on Admission Any Indicators Present on Admission: No Review of Systems - Constitutional Constitutional: As Per HPI - EENT Eyes: As Per HPI Ears: As Per HPI Nose/Mouth/Throat: As Per HPI - Cardiovascular Cardiovascular: As Per HPI - Respiratory Respiratory: As Per HPI - Gastrointestinal Gastrointestinal: As Per HPI - Genitourinary Genitourinary: As Per HPI - Musculoskeletal Musculoskeletal: As Per HPI - Integumentary Integumentary: As Per HPI - Neurological Neurological: As Per HPI - Psychiatric Psychiatric: As Per HPI - Endocrine Endocrine: As Per HPI Past Patient History - Past Social History Smoking Status: Never Smoked - CARDIAC Hx Cardiac Disorders: No - PULMONARY Hx Respiratory Disorders: No - NEUROLOGICAL Hx Neurological Disorder: No - HEENT Hx HEENT Problems: No - RENAL Hx Chronic Kidney Disease: No - ENDOCRINE/METABOLIC Hx Endocrine Disorders: No - HEMATOLOGICAL/ONCOLOGICAL Hx Blood Disorders: No - INTEGUMENTARY Hx Dermatological Problems: No - MUSCULOSKELETAL/RHEUMATOLOGICAL Hx Musculoskeletal Disorders: Yes Hx Arthritis: Yes - GASTROINTESTINAL Hx Gastrointestinal Disorders: No - GENITOURINARY/GYNECOLOGICAL Hx Genitourinary Disorders: No - PSYCHIATRIC Hx Substance Use: No - SURGICAL HISTORY Hx Appendectomy: Yes - ANESTHESIA Hx Anesthesia: No Meds Allergies/Adverse Reactions: Allergies Allergy/AdvReac Type Severity Reaction Status Date / Time No Known Allergies Allergy Verified 05/07/17 19:47 Physical Exam - Constitutional Appears: Well - Head Exam Head Exam: ATRAUMATIC, NORMAL INSPECTION, NORMOCEPHALIC - Eye Exam Eye Exam: EOMI, Normal appearance, PERRL Pupil Exam: NORMAL ACCOMODATION, PERRL - ENT Exam ENT Exam: Mucous Membranes Moist, Normal Exam - Neck Exam Neck exam: Positive for: Normal Inspection - Respiratory Exam Respiratory Exam: Clear to Auscultation Bilateral, NORMAL BREATHING PATTERN - Cardiovascular Exam Cardiovascular Exam: REGULAR RHYTHM - GI/Abdominal Exam GI & Abdominal Exam: Normal Bowel Sounds, Soft. absent: Tenderness - Rectal Exam Rectal Exam: NORMAL INSPECTION - Exam Exam: Circumcision, NORMAL INSPECTION External exam: NORMAL EXTERNAL EXAM Speculum exam: NORMAL SPECULUM EXAM Bimanual exam: NORMAL BIMANUAL EXAM - Extremities Exam Extremities exam: Positive for: normal inspection - Back Exam Back exam: NORMAL INSPECTION - Neurological Exam Neurological exam: Alert, CN II-XII Intact, Normal Gait, Oriented x3, Reflexes Normal - Psychiatric Exam Psychiatric exam: Normal Affect, Normal Mood - Skin Skin Exam: Dry, Intact, Normal Color, Warm Results - Vital Signs Recent Vital Signs: Last Vital Signs Temp 98.3 F 05/08/17 17:19 Pulse 94 H 05/08/17 18:00 Resp 20 05/08/17 17:19 BP 130/80 05/08/17 17:19 Pulse Ox 98 05/08/17 17:19 - Labs Result Diagrams: 05/07/17 20:00 05/07/17 20:00 Labs: Laboratory Results - last 24 hr 05/08/17 05/08/17 05/08/17 07:35 13:30 13:30 POC Glucose (mg/dL) 82 Hemoglobin A1c 5.8 25-OH Vitamin D Total TSH 3rd Generation 2.03 Urine Opiates Screen Urine Methadone Screen Ur Barbiturates Screen Ur Phencyclidine Scrn Ur Amphetamines Screen U Benzodiazepines Scrn U Oth Cocaine Metabols U Cannabinoids Screen 05/08/17 05/08/17 13:30 18:30 POC Glucose (mg/dL) Hemoglobin A1c 25-OH Vitamin D Total 27.2 L TSH 3rd Generation Urine Opiates Screen Negative Urine Methadone Screen Negative Ur Barbiturates Screen Negative Ur Phencyclidine Scrn Negative Ur Amphetamines Screen Negative U Benzodiazepines Scrn Negative U Oth Cocaine Metabols Negative U Cannabinoids Screen Negative Assessment & Plan - Assessment and Plan (Free Text) Assessment: Assessment & Plan (1) Transient ischemic attack (TIA) Assessment and Plan: Although the patient has no real risk factors for stroke, the length of time of the symptoms is concerning, therefor neurologist recommend a full TIA/stroke work-up , as recommend the followin. Telemetry 2. Echocardiogram with bubble study 3. Continue aspirin 81 mg daily and may D/C Plavix 4. Fluid with NS at 100 mL/hr 5. Will order hypercoagulable work-up as well as B12, B1, homocysteine, HbA1c, and lipid panel 6. PT/OT eval and treat if needed 7. DVT Px h/o knee replacement , r/o hayden ,as per pt he is snoring so sleep sp . consult , h/o ab. ekg so cardio consult called . lenth of time d/d with neur ., dr leslie and Courtney
--- NOTE | 2017-05-10 09:29 | CP.PCM.DIS ---
Provider - Provider Date of Admission: discharge summery dictated at 05/09/17 History of Present Illness: Mr. Rivera is a 51-year-old man with no significant past medical history, who presented after an episode of dysarthria, left facial droop and left arm weakness. These symptoms subsided after about two hours. He describes the episode as chest discomfort, left sided weakness and he stood up and fell. He felt nervous and jittery. In the ED, he had an initial NIHSS of 4. He was within the 3 hour time window of IV tPA, he refused tPA due to concern of bleed. He received aspirin 81 mg and Plavix 300 mg PO once and was started on fluids. His NIHSS went down to 1 for some mild dysarthria. Today, his NIHSS is 0. CT scan of the head was normal. CTA of the head/neck was normal. MRI showed DWI hyperintensity near the right lateral ventricle. 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 Attending physician: Jazmin Corbin MD Time Spent in preparation of Discharge (in minutes): 60 Diagnosis - Discharge Diagnosis (1) Syncopal episodes Status: Acute (2) Vitamin D deficiency Status: Acute Hospital Course - Lab Results Lab Results: Most Recent Lab Values WBC 5.8 10^3/ul (4.5-11.0) 05/07/17 20:00 RBC 5.07 10^6/uL (3.5-6.1) 05/07/17 20:00 Hgb 14.8 gm/dL (14.0-18.0) 05/07/17 20:00 Hct 44.7 % (42.0-52.0) 05/07/17 20:00 MCV 88.2 fL (80.0-105.0) 05/07/17 20:00 MCH 29.2 pg (25.0-35.0) 05/07/17 20:00 MCHC 33.1 g/dl (31.0-37.0) 05/07/17 20:00 RDW 14.1 % (11.5-14.5) 05/07/17 20:00 Plt Count 210 10^3/uL (120.0-450.0) 05/07/17 20:00 MPV 12.0 fl (7.0-11.0) H 05/07/17 20:00 Gran % 40.1 % (50.0-68.0) L 05/07/17 20:00 Lymph % (Auto) 50.2 % (22.0-35.0) H 05/07/17 20:00 [place] % (Auto) 7.8 % (1.0-6.0) H 05/07/17 20:00 Eos % (Auto) 1.6 % (1.5-5.0) 05/07/17 20:00 Baso % (Auto) 0.3 % (0.0-3.0) 05/07/17 20:00 Gran # 2.32 (1.4-6.5) 05/07/17 20:00 Lymph # 2.9 (1.2-3.4) 05/07/17 20:00 [place] # 0.5 (0.1-0.6) 05/07/17 20:00 Eos # 0.1 (0.0-0.7) 05/07/17 20:00 Baso # 0.02 K/mm3 (0.0-2.0) 05/07/17 20:00 PT 10.8 Seconds (9.9-11.8) 05/07/17 20:00 INR 1.00 (0.93-1.08) 05/07/17 20:00 APTT 25.0 Seconds (23.7-30.8) 05/07/17 20:00 Sodium 143 mmol/L (132-148) 05/07/17 20:00 Potassium 4.0 mmol/L (3.6-5.0) 05/07/17 20:00 Chloride 105 mmol/L (98-107) 05/07/17 20:00 Carbon Dioxide 26 mmol/L (21-33) 05/07/17 20:00 Anion Gap 16 (10-20) 05/07/17 20:00 BUN 15 mg/dL (7-21) 05/07/17 20:00 Creatinine 1.2 mg/dL (0.5-1.4) 05/07/17 20:00 Est GFR ( Amer) > 60 05/07/17 20:00 Est GFR (Non-Af Amer) > 60 05/07/17 20:00 POC Glucose (mg/dL) 96 mg/dL (65-110) 05/09/17 16:17 Random Glucose 102 mg/dL (70-110) 05/07/17 20:00 Hemoglobin A1c 5.8 % (4.2-6.5) 05/08/17 13:30 Calcium 9.5 mg/dL (8.4-10.5) 05/07/17 20:00 Total Bilirubin 0.6 mg/dL (0.2-1.3) 05/07/17 20:00 AST 21 U/L (15-59) 05/07/17 20:00 ALT 22 U/L (7-56) 05/07/17 20:00 Alkaline Phosphatase 54 U/L (38-133) 05/07/17 20:00 Troponin I < 0.01 ng/mL 05/07/17 20:00 Total Protein 7.7 g/dL (5.8-8.3) 05/07/17 20:00 Albumin 4.3 g/dL (3.0-4.8) 05/07/17 20:00 Globulin 3.4 gm/dL 05/07/17 20:00 Albumin/Globulin Ratio 1.3 (1.1-1.8) 05/07/17 20:00 Triglycerides 177 mg/dL (35-160) H 05/07/17 20:00 Cholesterol 144 mg/dL (130-200) 05/07/17 20:00 LDL Cholesterol Direct 59 mg/dL (0-129) 05/07/17 20:00 HDL Cholesterol 57 mg/dL (29-60) 05/07/17 20:00 25-OH Vitamin D Total 27.2 NG/ML (30.0-100.0) L 05/08/17 13:30 Homocysteine 16.4 umol/L ( <11.4) H 05/08/17 13:30 TSH 3rd Generation 2.03 mIU/mL (0.46-4.68) 05/08/17 13:30 Urine Opiates Screen Negative (NEGATIVE) 05/08/17 18:30 Urine Methadone Screen Negative (NEGATIVE) 05/08/17 18:30 Ur Barbiturates Screen Negative (NEGATIVE) 05/08/17 18:30 Ur Phencyclidine Scrn Negative (NEGATIVE) 05/08/17 18:30 Ur Amphetamines Screen Negative (NEGATIVE) 05/08/17 18:30 U Benzodiazepines Scrn Negative (NEGATIVE) 05/08/17 18:30 U Oth Cocaine Metabols Negative (NEGATIVE) 05/08/17 18:30 U Cannabinoids Screen Negative (NEGATIVE) 05/08/17 18:30 Blood Type O POSITIVE 05/07/17 20:00 Blood Type Confirm O POSITIVE 05/07/17 21:05 Antibody Screen Negative 05/07/17 20:00 BBK History Checked No verified bt 05/07/17 20:00 - Hospital Course Hospital Course: Mr. Rivera is a 51-year-old man with no significant past medical history, who presented after an episode of dysarthria, left facial droop and left arm weakness. These symptoms subsided after about two hours. He describes the episode as chest discomfort, left sided weakness and he stood up and fell. He felt nervous and jittery. In the ED, he had an initial NIHSS of 4. He was within the 3 hour time window of IV tPA, he refused tPA due to concern of bleed. He received aspirin 81 mg and Plavix 300 mg PO once and was started on fluids. His NIHSS went down to 1 for some mild dysarthria. Today, his NIHSS is 0. CT scan of the head was normal. CTA of the head/neck was normal. MRI showed DWI hyperintensity near the right lateral ventricle. 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 this may be a TIA vs questionable seizure activity in the brain likely precipitated by chronic sleep deprivation.r/o hayden , seen by dr calvillo Plan was : 1) Avoid hypotensive episodes. 2) Maintain SBP between 120-130 mmHg. 3) Maintain adequate hydration. 4) did and reviewed MRI brain. 5) did MRA head and neck. 6) Follow up EEG. Although the patient has no real risk factors for stroke, the length of time of the symptoms is concerning, therefor neuro recommend and did a full TIA/stroke work-up. 1. admitted in Telemetry 2. Echocardiogram with bubble study done , results pending 3. Continue aspirin 81 mg daily and may D/C Plavix 4. Fluid with NS at 100 mL/hr given. 5 .order hypercoagulable work-up as well as B12, B1, homocysteine, HbA1c, and lipid panel as out pt 6. PT/OT eval and treat as out pt 7. recommend monitoring the lateral ventricle cyst with a follow up MRI in 6- 12 months. Continue aspirin 81 mg daily. Homocysteine was elevated, B12 and folate supplementation may help. Vitamin D was low, he was advised to supplement. If the patient's echocardiogram is normal, he is cleared for discharge and outpatient follow up pt was cleared by neuro and cardio . Discharge Exam - Head Exam Head Exam: ATRAUMATIC, NORMAL INSPECTION, NORMOCEPHALIC - Eye Exam Eye Exam: EOMI, Normal appearance, PERRL Pupil Exam: NORMAL ACCOMODATION, PERRL - GI/Abdominal Exam GI & Abdominal Exam: Normal Bowel Sounds - Rectal Exam Rectal Exam: NORMAL INSPECTION - Exam Exam: Circumcision, NORMAL INSPECTION External exam: NORMAL EXTERNAL EXAM Speculum exam: NORMAL SPECULUM EXAM Bimanual exam: NORMAL BIMANUAL EXAM - Neurological Exam Neurological exam: Alert, CN II-XII Intact, Normal Gait, Oriented x3, Reflexes Normal - Psychiatric Exam Psychiatric exam: Normal Affect, Normal Mood - Skin Skin Exam: Dry, Intact, Normal Color, Warm Discharge Plan - Discharge Medications Prescriptions: Aspirin [Ecotrin] 81 mg PO DAILY #30 Famotidine [Pepcid] 40 mg PO HS #30 Clopidogrel [Plavix] 75 mg PO DAILY #30 Fenofibrate Nanocrystallized [Tricor] 145 mg PO DAILY #30 - Follow Up Plan Condition: FAIR Disposition: HOME/ ROUTINE Instructions: Transient Ischemic Attack (DC), Stroke (DC) Additional Instructions: - Follow up with your primary MD in 1-2 weeks. - For Stress Test on May 21, 2017 (Friday). Call [phone] to confirm date and time of appointment. - Take medications as prescribed.
== END 2017-05-09 18:56 | disposition home or self-care (01) ==
LOC: ED 19:44 → ERH 21:23 → 2RNO 22:58
PROVIDERS: ADMIT Internal Medicine; ATTEND Internal Medicine
DX: G93.0 Cerebral cysts (principal); R55 Syncope and collapse; E55.9 Vitamin D deficiency, unspecified; R29.704 NIHSS score 4; Z72.820 Sleep deprivation; Z79.82 Long term (current) use of aspirin; Z82.3 Family history of stroke; Z90.49 Acquired absence of other specified parts of digestive tract; Z96.659 Presence of unspecified artificial knee joint; R07.9 Chest pain, unspecified; G47.30 Sleep apnea, unspecified; G47.00 Insomnia, unspecified
CPT/HCPCS: 36415; 70450; 70496; 70544; 70549; 70553; 71010; 80053; 80061; 81240; 81241; 82306; 82948; 83036; 83090; 84252; 84425; 84443; 84446; 84484; 84591; 84597; 85025; 85210; 85610; 85613; 85730; 86850; 86900; 93005; 93306; 95812; 96374; 99285; A9579; G0378; G0480; J2405; J7040; Q9967